=== PATIENT | male | born 1965 | race Caucasian/White ===

== ENCOUNTER 2020-10-25 18:50 | Emergency (ER) | payer MEDICARE ==
[2020-10-25] MEDS ORDERED: Morphine 4 MG/ML Syringe IM ONE (20:10)
--- NOTE | 2020-10-25 20:11 | EDM.PDOC ---
ED HPI GENERAL MEDICAL PROBLEM - General Chief Complaint: General Stated Complaint: SWOLLEN ABDOMEN Time Seen by Provider: 10/25/20 20:00 Source of Information: Reports: Patient, Family, RN Notes Reviewed History Limitations: Reports: No Limitations - History of Present Illness INITIAL COMMENTS - FREE TEXT/NARRATIVE: 55-year-old gentleman presents emergency department day complaint of abdominal distention, he has known history of alcoholic hepatitis last paracentesis was approximately 4 weeks prior recently moved up here from [place] he is yet to establish with primary care he is currently residing in a correction for rehabilitation. Does complain of increasing pain with the abdominal girth Abdomen Pain Score (Numeric/FACES): 10 - Related Data Allergies Allergy/AdvReac Type Severity Reaction Status Date / Time No Known Allergies Allergy Verified 10/25/20 19:42 Home Meds: Home Meds Gabapentin [Neurontin] 2 cap PO TID 10/25/20 [History] Lactulose 20 gm PO QID 10/25/20 [History] Past Medical History Gastrointestinal History: Reports: Cirrhosis, Hepatitis, Jaundice, Other (See Below) Other Gastrointestinal History: end stage liver failure Musculoskeletal History: Reports: Gout, Other (See Below) Other Musculoskeletal History: generalized weekness. neuropathy knees down Neurological History: Reports: Neuropathy, Peripheral Psychiatric History: Reports: Depression Endocrine/Metabolic History: Reports: Hypokalemia Dermatologic History: Reports: Urticaria, Other (See Below) Other Dermatologic History: liver failure - Infectious Disease History Infectious Disease History: Reports: Chicken Pox - Past Surgical History HEENT Surgical History: Reports: Myringotomy w Tube(s), Tonsillectomy GI Surgical History: Reports: Other (See Below) Other GI Surgeries/Procedures: multiple pericentesis. TIPS procedure Social & Family History - Tobacco Use Tobacco Use Status *Q: Never Tobacco User Used Tobacco, but Quit: No - Caffeine Use Caffeine Use: Reports: Coffee - Recreational Drug Use Recreational Drug Use: No ED ROS GENERAL - Review of Systems Review Of Systems: See Below Constitutional: Reports: No Symptoms Respiratory: Reports: No Symptoms Cardiovascular: Reports: No Symptoms GI/Abdominal: Reports: Abdominal Pain, Distension ED EXAM, GENERAL - Physical Exam Exam: See Below Exam Limited By: No Limitations General Appearance: Alert, WD/WN, No Apparent Distress Respiratory/Chest: No Respiratory Distress GI/Abdominal: Soft, Non-Tender, Distended Extremities: Pedal Edema Course - Vital Signs Last Recorded V/S: Last Vital Signs Temp 97.6 F 10/25/20 19:40 Pulse 84 10/25/20 19:40 Resp 16 10/25/20 19:40 BP 141/66 H 10/25/20 19:40 Pulse Ox 97 10/25/20 19:40 - Orders/Labs/Meds Orders: Active Orders 24 hr Category Date Time Status US Guidance Paracentesis NC [US] Stat Exams 10/25/20 20:08 Ordered Meds: Medications Discontinued Medications Generic Name Dose Route Start Last Admin Trade Name Charmaine PRN Reason Stop Dose Admin Morphine Sulfate 4 mg 10/25/20 20:10 10/25/20 20:26 Morphine 4 Mg/Ml Syringe IM 10/25/20 20:11 4 mg ONETIME ONE Administration Departure - Departure Time of Disposition: 21:01 Disposition: Home, Self-Care 01 Condition: Poor Clinical Impression: Alcoholic hepatitis with ascites - Discharge Information Instructions: Ascites Referrals: PCP,None [Primary Care Provider] - Forms: ED Department Discharge Additional Instructions: Please report to the emergency department at 8 AM for a procedure appointment with Dr. Cabral Sepsis Event Note (ED) - Evaluation Sepsis Screening Result: No Definite Risk - Focused Exam Vital Signs: Vital Signs Temp Pulse Resp BP Pulse Ox 10/25/20 19:40 97.6 F 84 16 141/66 H 97 10/25/20 19:35 97.6 F 84 16 141/66 H 97 - My Orders Last 24 Hours: My Active Orders 10/25/20 20:08 US Guidance Paracentesis NC [US] Stat - Assessment/Plan Last 24 Hours: My Active Orders 10/25/20 20:08 US Guidance Paracentesis NC [US] Stat Plan: Assessment Acuity = acute Site and laterality = abdominal ascites secondary to end-stage liver disease secondary to alcoholic hepatitis Etiology = progression of disease Manifestations = increasing abdominal pain Location of injury = Home Lab values = ultrasound was used to zen the deepest pocket of fluid this was marked Plan Call discussed case with Dr. Cabral at 1999 he wants to plan for paracentesis at 8:00 in the morning here in the emergency department, Percocets 5/325 1 tab p.o. every 4 6 hours as needed total #6 This note was dictated using [employer] voice recognition software please call with any questions on syntax or grammar.
== END 2020-10-25 21:20 | disposition home or self-care (01) ==
LOC: JP.ED 18:50
DX: K70.11 Alcoholic hepatitis with ascites (principal)
CPT/HCPCS: 96372; 99284; J2270

== ENCOUNTER 2020-10-26 07:51 | Emergency (ER) | payer MEDICARE ==
--- NOTE | 2020-10-28 14:01 | OR ---
DATE OF PROCEDURE: 10/26/2020 SURGEON: Deric Cabral MD PREOPERATIVE DIAGNOSIS: Tense ascites secondary to hepatic cirrhosis. POSTOPERATIVE DIAGNOSIS: Tense ascites secondary to hepatic cirrhosis. OPERATIVE PROCEDURE: Ultrasound-guided paracentesis. INDICATION FOR PROCEDURE: A 55-year-old male seen in the emergency room yesterday with increasingly tense ascites. He has a known history of hepatic cirrhosis, status post a TIPS procedure with multiple paracenteses done in the past. Plan is to proceed with ultrasound- guided paracentesis. Potential risks including bleeding, infection, injury to underlying viscera were reviewed, and the patient wishes to proceed. DETAILS OF PROCEDURE: The patient was placed in the emergency room on a stretcher and an ultrasound was obtained showing adequate location for the paracentesis in the right subcostal area. The area was prepped and draped, anesthetized with 1% lidocaine and the paracentesis catheter placed. 3.5 L of bile-stained fluid was obtained. This was sent for full workup including microbiology, chemistries, cell count, differential, and cytology. The fluid was fairly thick and we could only get around 3.5 L out despite various maneuvers and found that a [id number] stitch of 2-0 Prolene stitch was placed around the catheter site was removed and dressing applied. The patient will be following up with Dr. Garcias at [facility] on 11/06. The sutures will be removed at that time. Deric Cabral MD /[id number]
== END 2020-10-26 10:27 | disposition home or self-care (01) ==
LOC: JP.ED 07:51
DX: Z53.21 Procedure and treatment not carried out due to patient leaving prior to being seen by health care provider (principal)
CPT/HCPCS: 36415; 82040; 82150; 82945; 83615; 83986; 84157; 86316; 87015; 87070; 87102; 87116; 87205; 87206; 87220; 89050

== ENCOUNTER 2020-11-03 11:11 | Emergency (ER) | payer MEDICARE ==
--- NOTE | 2020-11-03 11:42 | EDM.PDOC ---
ED HPI GENERAL MEDICAL PROBLEM - General Chief Complaint: Abdominal Pain Stated Complaint: STOMACH PAIN Time Seen by Provider: 11/03/20 11:42 Source of Information: Reports: Patient, Family History Limitations: Reports: No Limitations - History of Present Illness INITIAL COMMENTS - FREE TEXT/NARRATIVE: 55-year-old male with alcoholic cirrhosis, this is a chronic condition and he was actually on a liver transplant list for 2-1/2 years but then resumed drinking alcohol. That was about 2 months ago, he is now living in a local assisted care facility and needs fairly frequent paracentesis. He again feels like his abdomen is distended and painful, no fever, no nausea or vomiting. Onset: Unknown/Unsure Duration: Chronic Location: Reports: Abdomen Associated Symptoms: Reports: Loss of Appetite, Malaise. Denies: Confusion, Fever/Chills, Headaches, Nausea/Vomiting Abdomen Pain Score (Numeric/FACES): 8 - Related Data Allergies Allergy/AdvReac Type Severity Reaction Status Date / Time No Known Allergies Allergy Verified 11/03/20 11:40 Home Meds: Home Meds Gabapentin [Neurontin] 2 cap PO TID 10/25/20 [History] Lactulose 20 gm PO QID 10/25/20 [History] Past Medical History HEENT History: Reports: Impaired Vision Gastrointestinal History: Reports: Cirrhosis, Hepatitis, Jaundice, Other (See Below) Other Gastrointestinal History: end stage liver failure Musculoskeletal History: Reports: Gout, Other (See Below) Other Musculoskeletal History: generalized weekness. neuropathy knees down Neurological History: Reports: Neuropathy, Peripheral Psychiatric History: Reports: Depression Endocrine/Metabolic History: Reports: Hypokalemia Hematologic History: Reports: Blood Transfusion(s) Dermatologic History: Reports: Urticaria, Other (See Below) Other Dermatologic History: liver failure - Infectious Disease History Infectious Disease History: Reports: Chicken Pox - Past Surgical History Head Surgeries/Procedures: Reports: None HEENT Surgical History: Reports: Myringotomy w Tube(s), Tonsillectomy GI Surgical History: Reports: Other (See Below) Other GI Surgeries/Procedures: multiple pericentesis. TIPS procedure Endocrine Surgical History: Reports: None Neurological Surgical History: Reports: None Musculoskeletal Surgical History: Reports: Knee Replacement Dermatological Surgical History: Reports: None Social & Family History - Caffeine Use Caffeine Use: Reports: Coffee ED ROS GENERAL - Review of Systems Review Of Systems: See Below Constitutional: Denies: Fever, Chills Respiratory: Denies: Shortness of Breath Cardiovascular: Denies: Chest Pain GI/Abdominal: Reports: Abdominal Pain, Diarrhea (Some chronic diarrhea from lactulose). Denies: Constipation : Reports: Other (Urine is dark, this is also chronic) Skin: Reports: Other (Obvious jaundice) ED EXAM, GI/ABD - Physical Exam Exam: See Below Exam Limited By: No Limitations General Appearance: Alert, No Apparent Distress Eyes: Bilateral: EOMI (Significant scleral icterus) Head: Atraumatic Respiratory/Chest: No Respiratory Distress Cardiovascular: Regular Rate, Rhythm. No: Tachycardia GI/Abdominal Exam: Soft, Tender (Diffuse moderate tenderness to palpation, distention is present) Neurological: Alert, Oriented Psychiatric: Normal Affect, Normal Mood Skin Exam: Jaundice Course - Vital Signs Last Recorded V/S: Last Vital Signs Temp 97.5 F 11/03/20 11:39 Pulse 80 11/03/20 11:39 Resp 16 11/03/20 11:39 BP 138/68 11/03/20 11:39 Pulse Ox 97 11/03/20 11:39 - Orders/Labs/Meds Orders: Active Orders 24 hr Category Date Time Status US Guidance Paracentesis NC [US] Stat Exams 11/03/20 12:01 Taken - Re-Assessments/Exams Free Text/Narrative Re-Assessment/Exam: 11/03/20 13:19 Commented on the patient's jaundice, the daughter said he actually looks pretty good compared to his baseline. Discussed with Dr. Cabral, he is unable to fit the patient in for a paracentesis today but ultrasound marked an access point in the abdomen and he will return tomorrow morning to the ACU for paracentesis. Departure - Departure Time of Disposition: 12:45 Disposition: DC/Tfer to [facility] Clinical Impression: Alcoholic cirrhosis of liver with ascites - Discharge Information Instructions: Ascites Referrals: PCP,None [Ordering Only Provider] - Forms: ED Department Discharge Care Plan Goals: Return tomorrow for procedure as scheduled. Sepsis Event Note (ED) - Evaluation Sepsis Screening Result: No Definite Risk - Focused Exam Vital Signs: Vital Signs Temp Pulse Resp BP Pulse Ox 11/03/20 11:39 97.5 F 80 16 138/68 97 - My Orders Last 24 Hours: My Active Orders 11/03/20 12:01 US Guidance Paracentesis NC [US] Stat - Assessment/Plan Last 24 Hours: My Active Orders 11/03/20 12:01 US Guidance Paracentesis NC [US] Stat
== END 2020-11-03 12:44 ==
LOC: JP.ED 11:11
DX: K70.31 Alcoholic cirrhosis of liver with ascites (principal)
CPT/HCPCS: 99285-25